=== PATIENT | female | born 1980 | race Caucasian/White ===

== ENCOUNTER 2017-04-06 01:05 | Inpatient (IN) | payer MEDICAID, SELFPAY ==
[2017-04-06 01:19] VITALS: BMI 37.6
[2017-04-06] MEDS: Lactated Ringers 1,000 ML 50 ML IV ×8 (01:45→18:51)
[2017-04-06 02:08] LABS: Hematocrit 32.7 % (37-47); Hemoglobin 10.8 g/dl (12.0-15.0); Mean Corpuscular Hgb 29.8 pg (27.0-32.0); Mean Corpuscular Volume 90.1 fL (81-99); Mean Platelet Vol. 10.5 fl (6.2-12.0); Platelet Count 300 K/mm3 (150-450); RBC Distribution Width CV 16.2 % (11.6-14.6); Red Blood Count 3.63 M/mm3 (4.2-5.4); White Blood Count 11.4 K/mm3 (4.4-11.0)
[2017-04-06 02:09] LABS: Scan Indicated on CBC? Y/N NO
[2017-04-06] MEDS: Ondansetron 4 MG/2 ML Vial IV ×2 (05:01→18:39)
[2017-04-06] MEDS: Oxytocin 30 units/NS 500 ml 30 UNITS/500 ML IV.SOLN IV ×2 (08:56→18:47)
--- NOTE | 2017-04-06 13:29 | PCM.PN.BLA ---
Progress Note LABOR PROGRESS NOTE Comfortable with epidural. AVSS GEN - NAD, OO x 3 SVE 4/70/-2 per RN exam TOCO 4-5/10 min, however unable to detect due to maternal positioning in hands and knees at this time FHR - 150 moderate variability, + accelerations, prolonged deceleration to 80s-90s bpm A/P: 36 yo @ 39 6/7wga with SROM in latent labor, Cat II FHR -Pitocin discontinued, maternal repositioning, O2 supplementation -Prolonged deceleration recovering towards baseline. Will continue to monitor closely. ISE in place. -Plan to place IUPC in order to monitor contractions further.
--- NOTE | 2017-04-06 13:34 | PN_ITS ---
Progress Note LABOR PROGRESS NOTE Comfortable with epidural. AVSS GEN - NAD, OO x 3 SVE 4/70/-2 per RN exam TOCO 4-5/10 min, however unable to detect due to maternal positioning in hands and knees at this time FHR - 150 moderate variability, + accelerations, prolonged deceleration to 80s- 90s bpm A/P: 36 yo @ 39 6/7wga with SROM in latent labor, Cat II FHR -Pitocin discontinued, maternal repositioning, O2 supplementation -Prolonged deceleration recovering towards baseline. Will continue to monitor closely. ISE in place. -Plan to place IUPC in order to monitor contractions further.
[2017-04-06] MEDS: Mag Hydrox/Al Hydrox/Simeth 30 ML UDC PO (16:00)
--- NOTE | 2017-04-06 20:55 | PN.OBGYN_ITS ---
Subjective: Patient presented last evening with spontaneous rupture of membranes at home. Epidural was placed when the patient was approximately 3-4 cm dilation. She slowly progressed to about 8 cm dilation 85% effaced over period of approximately about 14 hours. Pitocin was started about 13 hours ago and has run most of the day with contractions intermittently adequate as noted by an IUPC. Multiple times during the day it was necessary to shut off but then later restart the pitocin because of late decelerations. The baby tolerated labor only in certain positions. After 6 hours of no cervical change, approximately 4 trial pushes were attempted with no descent of the head past -1 station. Given no cervical change release manager the past 6 hours with the cervix dilated 8 cm and maximum contractions on Pitocin tolerable by the baby, we have discussed options and patient desires that we proceed with primary section for failure to progress and failure of descent. The patient and her family have been counseled regarding the risk and indications of this procedure including the possibility of bleeding infection and injury to surrounding structures such as bowel bladder. All questions were answered. - Physical Exam Weight: 206 lb Body Mass Index (BMI) 37.6 Intake and Output for Last 24 Hours 04/04/17 04/05/17 04/06/17 23:59 23:59 23:59 Intake Total 7434 / 7434 Output Total 2175 / 2175 Balance 5259 / 5259 Laboratory Tests Past 24 Hrs 04/06/17 04/06/17 01:45 01:45 WBC 11.4 H RBC 3.63 L Hgb 10.8 L Hct 32.7 L MCV 90.1 MCH 29.8 MCHC 33.0 RDW 16.2 H RDW Differential 51.0 H Plt Count 300 MPV 10.5 Blood Type A POSITIVE Antibody Screen NEGATIVE
[2017-04-06] MEDS: Sodium Citrate/Citric Acid 30 ML UDC PO (21:00)
[2017-04-06] MEDS: Cefazolin 2 GM in 0.9% Normal Saline 100 ML IV ×2 (21:01→21:30)
--- NOTE | 2017-04-06 21:04 | OP.PCM_ITS ---
Operative Report Date of Procedure: 04/06/17 Surgeon: Ty Devine MD, FACOG [employer] Team Member: CULLEN Velasquez Anesthesia: Shiela Han MD Anesthesia: Epidural with Duramorph Pre-op Diagnosis: - -Failure to Progress and Failure to Descend Post-Op Diagnosis: - -Failure to Progress and Failure to Descend Procedure: Primary Low Transverse Cervical Caesarean Section Findings: Viable male with Apgars of 9/9 in occiput anterior presentation with clear amniotic fluid and normal three-vessel placenta. Cord was around leg times 1 tight. Indication: This is a 36-year-old 3 para 2 ab 0 who presented last evening with spontaneous rupture of membranes at home. Epidural was placed when the patient was approximately 3-4 cm dilation. She slowly progressed to about 8 cm dilation 85% effaced over period of approximately about 14 hours. Pitocin was started about 13 hours ago and has run most of the day with contractions intermittently adequate as noted by an IUPC. Multiple times during the day it was necessary to shut off but then later restart the pitocin because of late decelerations. The baby tolerated labor only in certain positions. After 6 hours of no cervical change, approximately 4 trial pushes were attempted with no descent of the head past -1 station. Given no cervical ticket dispenser changer the past 6 hours with the cervix dilated 8 cm and maximum contractions on Pitocin tolerable by the baby, we have discussed options and patient desires that we proceed with primary section for failure to progress and failure of descent. The patient and her family have been counseled regarding the risk and indications of this procedure including the possibility of bleeding infection and injury to surrounding structures such as bowel bladder. All questions were answered. Procedure: Patient was taken to the operating room where after epidural catheter was redosed, the patient was prepped and draped in usual sterile fashion; a Lopez catheter had been previously placed. The abdomen was entered through a Pfannenstiel incision and peritoneum was entered bluntly. After developing a bladder flap on the lower uterine segment a low transverse incision was made on the uterus and head was easily delivered onto the operative field the nose mouth and oropharynx were bulb suctioned. Subsequently a viable male infant was born with Apgars of 9/9. The was noted to cry move all extremities vigorously on the operative field. The umbilical cord was doubly clamped and ligated and infant handed to the nursery personnel who were present for the delivery. Placenta was delivered and noted to be 3 vessels and normal. Uterus was exteriorized remaining placental tissue was removed. The uterus was then closed in 2 layers first with running locked Number 1 Vicryl suture followed by a second imbricating layer with Number 1 Vicryl suture. Number 1 Vicryl suture was then used in a horizontal mattress interrupted fashion to affect final hemostasis of the uterine incision line. Normal fallopian tubes and ovaries were visualized and the uterus was returned to the pelvis. Hemostasis was noted and rectus abdominis muscles were reapproximated in the midline with interrupted Number 1 Vicryl suture in a horizontal mattress fashion. Fascia was closed with running Number 1 loop PDS suture. Subcutaneous tissue was closed with running 3-0 Vicryl suture and skin was closed with 4-0 monocryl suture in a running subcuticular fashion. Steri strips, telfa, and tape were placed across the incision. The patient tolerated the procedure well and was taken to the recovery room in satisfactory condition. Sponge, needle, and instrument counts were all reportedly correct. EBL was 500 cc. Ancef 2 gms IV was given prior to the procedure. Spicemen to Pathology: None Complications: None
--- NOTE | 2017-04-06 21:07 | DCINST_ITS ---
Discharge Diet: No Restrictions Discharge Activity: May not drive while taking narcotic pain medications., May Shower, May Take a Tub Bath May resume sexual activity in: 4-6 weeks Lifting Restrictions: 20 pounds Additional Activity Instructions:: Nothing in the vagina for 4-6 weeks. You may return to work/school in 6 weeks. Call your doctor if your incision/area has: Continuous Slow Oozing, Sudden Increased Bleeding, Increased Pain/ Swelling, Increased Redness, Foul Smelling Discharge Call your doctor if you observe: Fever of 101 or Higher, Inability to urinate, Inability to have a bowel movement, Using more than one pad per hour Additional Instructions: If you experience any of the following, contact your healthcare provider. * Bleeding that soaks a pad every hour for 2 hours * Unrelieved incision or abdominal pain * Swelling, redness, discharge or bleeding from your incision or episiotomy site * Your incision begins to separate * Problems urinating (including inability to urinate or burning while urinating) . * Visual changes * Severe headache * Flu-like symptoms * Pain or redness in one of both of your breasts * Pain, warmth, tenderness or swelling in your legs, especially the calf area * Frequent nausea and vomiting * Symptoms of depression or anxiety If you experience any of the following, call 911 or go to the nearest Emergency Room. * Chest pain * Problems breathing * Seizure activity * Partial or complete paralysis of a body part, slurred speech, weakness or drooping of the face, or a sudden inability to walk or hold your balance Allergies/Adverse Reactions: Allergies metoclopramide [From Reglan] Adverse Reaction (Verified 09/24/16 16:00) Other I JUST GET JUMPY Medications to take at Discharge Ferrous Sulfate 325 mg PO DAILY@0800 03/10/17 Vits [Prenatabs FA] 1 tablet PO DAILY 03/10/17 ProMETHAzine [Phenergan] 12.5 mg PO DAILY 03/10/17 Ranitidine [Zantac] 150 mg PO BID 03/10/17 Sertraline HCl [Zoloft] 50 mg PO DAILY 03/10/17 Docusate Sodium [Colace] 100 mg PO BID PRN PRN #60 cap 04/06/17 Oxycodone [Oxyir] 5 - 10 mg PO Q6H PRN PRN 7 Days #25 tab 04/06/17 The following prescriptions were given: Oxycodone [Oxyir] 5 - 10 mg PO Q6H PRN PRN 7 Days #25 tab PRN Reason: Severe Pain (-12/01) Docusate Sodium [Colace] 100 mg PO BID PRN PRN #60 cap PRN Reason: Constipation Follow-Up: Call to make an appointment with your doctor for an incision check in 1-2 weeks. You will also need a 6 week post- follow up appointment. Please Follow Up With: Val Brar MD - [phone] When: Call to make an appointment for an incision check in 2 weeks. Primary Care Physician: Jerrell Thomas [Primary Care Provider] -
[2017-04-06] MEDS: Oxytocin 30 units/NS 500 ml 30 UNITS/500 ML IV.SOLN 167 UNITS IV (21:30)
[2017-04-06 22:30] VITALS: BP 113/70; BP 129/73; PULSE 74; RESP 15; TEMP 37.8; O2SAT 97
[2017-04-06 22:45] VITALS: BP 113/70; BP 136/77; PULSE 78; RESP 12; TEMP 37.6; O2SAT 95
[2017-04-06 23:00] VITALS: BP 113/70; BP 130/72; PULSE 74; RESP 13; TEMP 37.3; O2SAT 96
[2017-04-06 23:15] VITALS: BP 113/70; BP 122/68; PULSE 79; RESP 16; O2SAT 94
[2017-04-06 23:30] VITALS: BP 113/70; BP 119/61; PULSE 78; RESP 18; O2SAT 95
[2017-04-06 23:45] VITALS: BP 113/70; BP 123/66; PULSE 80; RESP 18; TEMP 37.3; O2SAT 96
[2017-04-07] VITALS (18 sets, daily range): BP systolic 92–124; BP diastolic 55–74; PULSE 80–109; RESP 16–18; TEMP 36.7–37.5; O2SAT 92–99
--- NOTE | 2017-04-07 01:43 | NURSING ---
30 cc blood clot noted, pad changed at this time
[2017-04-07] MEDS: Ketorolac 30 MG/ML Syringe IV ×4 (03:39→21:07)
[2017-04-07] MEDS: Cefazolin 1 GM/50 ML BAG IV ×2 (04:51→13:17)
[2017-04-07 05:06] LABS: Hemoglobin 9.4 g/dl (12.0-15.0); Mean Corp Hgb Conc 32.4 g/gl (32-36); Mean Corpuscular Hgb 29.7 pg (27.0-32.0); Mean Corpuscular Volume 91.5 fL (81-99); Mean Platelet Vol. 9.8 fl (6.2-12.0); Platelet Count 252 K/mm3 (150-450); RBC Distribution Width CV 16.2 % (11.6-14.6); RBC Distribution Width SD 51.6 fl (35.1-43.9); Red Blood Count 3.17 M/mm3 (4.2-5.4); White Blood Count 14.5 K/mm3 (4.4-11.0)
[2017-04-07 05:20] LABS: Scan Indicated on CBC? Y/N NO
--- NOTE | 2017-04-07 08:54 | PN.OBGYN_ITS ---
Subjective: Patient without complaints. Tolerating diet well. Positive flatus. Breast- feeding going well. - Physical Exam Vital Signs AF, VSS Temp Pulse Resp BP Pulse Ox 98.3 F 80 18 94/61 95 04/07/17 07:36 04/07/17 07:36 04/07/17 07:36 04/07/17 07:36 04/07/17 07:36 Oxygen Delivery Method Room Air Weight: 206 lb Body Mass Index (BMI) 37.6 Intake and Output for Last 24 Hours 04/05/17 04/06/17 04/07/17 23:59 23:59 23:59 Intake Total 7434 / 7434 1268 / 1268 Output Total 2675 / 2675 325 / 325 Balance 4759 / 4759 943 / 943 Laboratory Tests Past 24 Hrs 04/07/17 05:00 WBC 14.5 H RBC 3.17 L Hgb 9.4 L Hct 29.0 L MCV 91.5 MCH 29.7 MCHC 32.4 RDW 16.2 H RDW Differential 51.6 H Plt Count 252 MPV 9.8 Wound is clean, dry, intact. Good urine output. Hemoglobin okay. Assessment/Plan Well. Continuing present care.
[2017-04-07] MEDS: Lactated Ringers 1,000 ML 100 ML IV (09:45)
[2017-04-07] MEDS: 0.9% Saline Lock 10 ML Syringe IV ×2 (15:12→21:14)
--- NOTE | 2017-04-07 17:21 | NURSING ---
1430 pt up to bathroom to wash up, holder emptied for 500 cc urine, iv to saline kristy at 1500, tolerated sitting in chair without difficulty, pads changed for small amt of carlos campbell
[2017-04-07] MEDS: Acetaminophen 500 MG Tablet 1000 MG PO (19:45)
[2017-04-07] MEDS: Senna/Docusate Sodium 1 Tablet PO (19:45)
[2017-04-07] MEDS: Sertraline 50 MG Tablet PO (21:27)
[2017-04-08 02:22] VITALS: BP 105/66; PULSE 82; RESP 18; TEMP 36.8; O2SAT 96
[2017-04-08] MEDS: 0.9% Saline Lock 10 ML Syringe IV ×3 (02:39→14:28)
[2017-04-08] MEDS: Ketorolac 30 MG/ML Syringe IV ×3 (02:40→14:27)
--- NOTE | 2017-04-08 07:30 | PCM.PN.OB ---
Subjective: Pain reasonably controlled. Voiding. Tolerating PO. Bleeding light. Bottle feeding. Objective: Afeb VSS - Physical Exam General: Alert, Oriented x3, Cooperative, No apparent distress Lungs: Clear to auscultation, Normal air movement Cardiovascular: Regular rate, Regular Rhythm Abdomen: Soft, Non Tender, Non-Distended, - - Incision intact, dry, no erythema Extremities: No edema Skin: No rashes Neurological: Neuro grossly intact Psych/Mental Status: Normal Affect Comment: Lochia light Vital Signs Temp Pulse Resp BP Pulse Ox 98.2 F 82 18 105/66 96 04/08/17 02:22 04/08/17 02:22 04/08/17 02:22 04/08/17 02:22 04/08/17 02:22 Oxygen Delivery Method Room Air Weight: 206 lb Body Mass Index (BMI) 37.6 Intake and Output for Last 24 Hours //18 //18 04/08/17 23:59 23:59 23:59 Intake Total 7434 / 7434 2968 / 2968 Output Total 2675 / 2675 1675 / 1675 300 / 300 Balance 4759 / 4759 1293 / 1293 -300 / -300 Assessment/Plan Doing well on POD#2. Considering discharge today. Home going instructions and warnings given.
[2017-04-08 08:15] VITALS: BP 127/76; PULSE 76; RESP 18; TEMP 37.3; O2SAT 97
[2017-04-08 14:30] VITALS: BP 127/72; PULSE 82; RESP 16; TEMP 37; O2SAT 98
--- NOTE | 2017-04-08 15:30 | NURSING ---
baby bands verified by nurse and mother. mother signed baby discharge form
== END 2017-04-08 15:45 | disposition home or self-care (01) | DRG 370 ==
PROVIDERS: Admitting Provider Obstetrics & Gynecology; Family Provider Physician Assistant; PCP Physician Assistant; Visit Provider Obstetrics & Gynecology
DX: O32.4XX0 Maternal care for high head at term, not applicable or unspecified (principal); O99.02 Anemia complicating childbirth; D64.9 Anemia, unspecified; O76 Abnormality in fetal heart rate and rhythm complicating labor and delivery; O42.02 Full-term premature rupture of membranes, onset of labor within 24 hours of rupture; O99.344 Other mental disorders complicating childbirth; F32.9 Major depressive disorder, single episode, unspecified; F41.9 Anxiety disorder, unspecified; O99.353 Diseases of the nervous system complicating pregnancy, third trimester; M79.7 Fibromyalgia; Z37.0 Single live birth; Z3A.39 39 weeks gestation of pregnancy
CPT/HCPCS: 59025; 59050; 85027; 86850; 86900; 99218; J7120; A4216; G0378; J2405

== ENCOUNTER → 2017-05-24 13:59 | Outpatient (CLI) | payer MEDICAID, SELFPAY | PROVIDERS: Visit Provider Obstetrics & Gynecology | DX: N39.0 Urinary tract infection, site not specified (principal) | CPT/HCPCS: 87077; 87086; 87088; 87186 ==

== ENCOUNTER → 2022-07-02 | Outpatient (CLI) | payer OTHER, MEDICAID, SELFPAY ==
[2022-07-10 11:09] LABS: HPV APTIMA, High Risk Negative (Negative)
== END | disposition home or self-care (01) ==
LOC: LABSPEC 16:58
PROVIDERS: PCP Physician Assistant; Visit Provider Nurse Practitioner Women's Health
DX: Z01.419 Encounter for gynecological examination (general) (routine) without abnormal findings (principal)
CPT/HCPCS: 87624; 88175; G0145

== ENCOUNTER → 2022-09-09 | Outpatient (CLI) | payer OTHER, MEDICAID, SELFPAY ==
--- NOTE | 2022-09-09 07:20 | US_ITS ---
INDICATION: menorrhagia EXAMINATION: Ultrasound US Pelvis Non OB Complete With Transvaginal Imaging TECHNIQUE: Transabdominal and transvaginal pelvic ultrasound was performed. Grayscale, spectral waveform, and color flow Doppler evaluation of the adnexa. COMPARISON: CT abdomen and pelvis August 15, 2013 FINDINGS: UTERUS: Retroverted to retroflexed The uterus measures 9.9 x 7.1 x 5.0 cm. There is no uterine mass. The endometrial stripe measures 14 in AP diameter. Small nabothian cysts are incidentally noted in the cervix. RIGHT OVARY: 3.22 x 2.06 x 2.18 cm. Non-enlarged, normal echogenicity. There is normal arterial inflow and venous outflow present in the right ovary. LEFT OVARY: 3.9 x 1.85 x 2.55 cm. Non-enlarged, normal echogenicity. There is normal arterial inflow and venous outflow present in the left ovary. FREE FLUID: None. URINARY BLADDER: At the time of scanning, the bladder was 12.36 x 7.22 x 10.33 cm, corresponding to a volume of 483 mL. US/Pelvic (Non ) IMPRESSION: 1. Retroverted to retroflexed, normal size uterus. There is mild endometrial thickening, which may be physiologic (LMP August 11, 2022). 2. Unremarkable ovaries. Electronically Signed: Miguel Angel Orourke MD at 9:54 EDT Reading Location ID and State: [id number] / Unknown , Service support ,
--- NOTE | 2022-09-09 07:20 | BI_ITS ---
MAMMOGRAPHY - BILATERAL SCREENING 3-D TOMOSYNTHESIS REASON FOR EXAM: Female, 41 years old. Routine screening PERTINENT HISTORY: No significant family history. TECHNIQUE: 2-D mammograms and 3-D Tomosynthesis of the breast (s) were performed. CAD was performed. COMPARISON: None. Baseline examination. FINDINGS: The breast composition is heterogeneously dense that can obscure small breast masses. Scattered benign calcifications are seen. No dense spiculated masses or suspicious microcalcifications are identified. No architectural distortion is identified. There is no skin thickening or retraction. BI/SCRN MAMM (CAD)W/NOEMY BILAT IMPRESSION: No mammographic signs of malignancy. Routine yearly mammograms recommended. ASSESSMENT CATEGORY: BIRADS Category 2: Benign. A letter regarding these results will be sent to the patient by the facility within 30 days. FOLLOW UP RECOMMENDATION: Yearly follow up mammogram recommended. (A) Approximately 10% of breast cancers are not detected by mammography. A normal mammogram should not delay biopsy of a clinically suspicious abnormality. Electronically Signed: Miguel Angel Flaherty MD at 8:45 EDT ,
== END | disposition home or self-care (01) ==
LOC: OPUS 07:19
PROVIDERS: PCP Physician Assistant; Referring Provider Nurse Practitioner Women's Health; Visit Provider Nurse Practitioner Women's Health
DX: Z12.31 Encounter for screening mammogram for malignant neoplasm of breast (principal); N92.0 Excessive and frequent menstruation with regular cycle
CPT/HCPCS: 76830; 76856; 77063; 77067

== ENCOUNTER 2024-06-12 17:56 | Emergency (ER) | payer BC, SELFPAY ==
[2024-06-12 17:57] VITALS: BP 152/94; PULSE 69; RESP 18; TEMP 36.6; O2SAT 98; BMI 32.7
[2024-06-12] MEDS: Ketorolac 15 MG/ML Vial IV (18:28)
[2024-06-12] MEDS: 0.9% Normal Saline (1000mL) 1,000 ML 999 ML IV (18:28)
--- NOTE | 2024-06-12 18:29 | EDS_ITS ---
HPI <CHELSEA Kirby - Last Filed: 06/12/24 20:48> History of Present Illness Chief Complaint: Abn Labs Narrative Narrative: Patient presenting today after being told to come down by her PCP. Over the past 8 days she has had generalized bodyaches as well as intermittent headaches and pain to her neck. She saw urgent care on , she had basic labs and a CPK obtained that were unremarkable. She was discharged home on prednisone which she has taken now for 4 days. She saw her PCP today in the office, they repeated labs and called her this evening to say that her WBC was 16,000 and that she needed to come in to the ER to be evaluated. She had a COVID/influenza/RSV swab that was negative. She denies fevers, chills, flulike symptoms, abdominal pain, nausea, vomiting, urinary symptoms, and diarrhea. She has a PMH of fibromyalgia and arthritis. PFSH <CHELSEA Kirby - Last Filed: 06/12/24 20:48> PFS Medical History Anemia Anxiety and depression Home Medications ?Medication ?Instructions ?Recorded ?Last Taken ?Type ferrous sulfate 325 mg (65 mg 325 mg PO DAILY@0800 low hbg 03/10/17 1 Day Ago History iron) tablet ~04/05/17 desvenlafaxine succinate 25 mg 25 mg PO DAILY 07/02/22 Unknown History tablet,extended release 24 hr (Pristiq) multivitamin 1 tab PO DAILY 07/02/22 Unkn own History Allergy/AdvReac Type Severity Reaction Status Date / Time metoclopramide (From Reglan) AdvReac Other Verified 06/12/24 17:56 Family History Father Cancer lymphoma Heart disease CVA (cerebral vascular accident) Grandmother CVA (cerebral vascular accident) Grandfather Huntingtons chorea Surgical History S/P wisdom tooth extraction S/P Social History household members: significant other and children housing: house number of children: 3 current occupational status: employed 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 Smoking Status: Never smoker alcohol intake: current alcohol intake frequency: holidays/special occasions only substance use type: does not use seatbelt use: always do you feel safe at home: Yes additional social history: [employer]- [employer] 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 ROS <CHELSEA Kirby - Last Filed: 06/12/24 20:48> ROS ED Constitutional Constitutional ED: Denies chills or fever(s) ENT ENT ED: Denies sore throat Cardiovascular Cardiovascular: Denies chest pain Respiratory/Chest Respiratory/Chest: Denies cough or dyspnea Gastrointestinal Gastrointestinal: Denies abdominal pain, nausea or vomiting Genitourinary Genitourinary ED: Denies dysuria, hematuria or urinary urgency Musculoskeletal Musculoskeletal: Reports arthralgias, myalgias and neck pain Integumentary Denies rash Neurologic Neurologic: Reports headache(s); Denies paresthesias or weakness EXAM <CHELSEA Kirby - Last Filed: 06/12/24 20:48> Physical Exam Const Vital Signs: 06/12/24 17:57 06/12/24 20:11 Temperature 97.8 F 98.2 F Temperature Source Oral Pulse Rate 69 52 L Respiratory Rate 18 18 Blood Pressure 152/94 H 130/80 H Blood Pressure Mean 113 96 Pulse Ox 98 98 Oxygen Delivery Method Room Air Positive well nourished, well developed and no apparent distress General Appearance ED: well developed HEENT Reports normocephalic, head/scalp atraumatic and TM's clear HEENT Narrative: Posterior pharynx clear, uvula midline Tympanic Membrane ED: Yes TM's clear bilateral Mouth ED: Yes moist mucous membranes normal Eyes PERRL and EOMs intact bilaterally Neck supple Neck Narrative: No meningeal signs, negative Kernig's and Brudzinski sign, full range of motion to the neck. Pain to the bilateral trapezius muscles Chest Wall inspection of chest normal Resp normal respiratory effort and clear to auscultation bilaterally Cardio regular rate and regular rhythm GI soft to palpation, non-tender, non-distended and no masses Back/Spine normal ROM and normal to inspection Extremity normal to inspection and full ROM Neuro oriented x3, CN's II-XII intact bilaterally, moves all extremities, no focal motor deficits and no sensory deficits noted Sensorium / Orientation: awake and alert Psych mental status grossly normal and thought process normal Skin no rashes or lesions noted and no wounds <Dr. Michele Telles DO - Last Filed: 06/12/24 20:05> Physical Exam Const Vital Signs: 06/12/24 17:57 06/12/24 20:11 Temperature 97.8 F 98.2 F Temperature Source Oral Pulse Rate 69 52 L Respiratory Rate 18 18 Blood Pressure 152/94 H 130/80 H Blood Pressure Mean 113 96 Pulse Ox 98 98 Oxygen Delivery Method Room Air MDM <CHELSEA Kirby - Last Filed: 06/12/24 20:48> MDM MDM Narrative Medical decision making narrative: Patient presenting today after being sent in by her PCP due to leukocytosis. She has had generalized bodyaches, neck/upper back pain, and headaches over the past 8 days. She has tenderness to her bilateral trapezius muscles, no meningeal signs on exam. She has a negative Kernig's and Brudzinski sign. She is nontoxic-appearing with unremarkable vital signs. I did review her workup from her PCPs office, she had a X-ray of the cervical and thoracic spine negative for acute findings, CBC, CMP, and CPK from were unremarkable. She was started on prednisone which could explain her leukocytosis today. Labs were repeated here, her CBC shows a mildly elevated WBC at 11.4, her BMP is unremarkable. She did get a result back while she was here, her Yaron-Reyna virus came back positive from her PCPs office. Suspect that that is the cause of her symptoms and WBC elevation. Supportive care measures discussed, she was given IV fluids and Toradol here for pain. Recommended she follow-up with her PCP and she will be discharged Lab Data Attestation: I reviewed the patient's lab results. Labs: Laboratory Results - last 24 hr 06/12/24 16:28 WBC 11.4 H RBC 4.08 L Hgb 12.6 Hct 37.1 MCV 90.9 MCH 30.9 MCHC 34.0 RDW Std Deviation 39.0 RDW Coeff of Kaitlin 11.8 Plt Count 297 MPV 10.2 Immature Gran % (Auto) 0.500 Neut % (Auto) 80.0 H Lymph % (Auto) 15.3 L Rooks % (Auto) 3.9 Eos % (Auto) 0.1 Baso % (Auto) 0.2 Absolute Neuts (auto) 9.1 H Absolute Lymphs (auto) 1.74 Nucleated RBC % 0 Sodium 137 Potassium 4.1 Chloride 104 Carbon Dioxide 20.0 L Anion Gap 13 BUN 15 Creatinine 0.81 Estim Creat Clear Calc 87.50 Est GFR (MDRD) Non-Af 92 BUN/Creatinine Ratio 19.0 Glucose 137 H Lactic Acid < 1.0 Calcium 9.4 <Dr. Michele Telles, DO - Last Filed: 06/12/24 20:05> MDM Lab Data Labs: Laboratory Results - last 24 hr 06/12/24 16:28 WBC 11.4 H RBC 4.08 L Hgb 12.6 Hct 37.1 MCV 90.9 MCH 30.9 MCHC 34.0 RDW Std Deviation 39.0 RDW Coeff of Kaitlin 11.8 Plt Count 297 MPV 10.2 Immature Gran % (Auto) 0.500 Neut % (Auto) 80.0 H Lymph % (Auto) 15.3 L Rooks % (Auto) 3.9 Eos % (Auto) 0.1 Baso % (Auto) 0.2 Absolute Neuts (auto) 9.1 H Absolute Lymphs (auto) 1.74 Nucleated RBC % 0 Sodium 137 Potassium 4.1 Chloride 104 Carbon Dioxide 20.0 L Anion Gap 13 BUN 15 Creatinine 0.81 Estim Creat Clear Calc 87.50 Est GFR (MDRD) Non-Af 92 BUN/Creatinine Ratio 19.0 Glucose 137 H Lactic Acid < 1.0 Calcium 9.4 Treatment and Re-Evaluation :: ED attending note: I evaluated the patient in conjunction with the [facility]. I agree with his/her statements and above findings. I have personally performed a face to face assessment of the patient and have reviewed the [facility] Note. I performed a substantive portion of the visit including all aspects of the following. I personally saw the patient performed chart review, physical exam, reviewed labs, imaging (if obtained), and formulated a treatment and management plan. History as above Exam: No meningeal signs, neck is supple, no focal deficits, lungs are clear, abdomen soft nontender. No focus of infection or rash. MDM/plan Will obtain basic labs rule out signs of significant leukocytosis, lactate elevation, anion gap elevation. Labs reviewed and were unremarkable. Of note on my evaluation patient noted that outpatient testing shows she is EBV positive. She is concerned for mononucleosis. Will give further outpatient instructions and splenomegaly precautions. This note was generated with [employer] dictation software. It may contain incorrect words, spelling, and punctuation that were not noted in review of the chart prior to signing. Discharge Plan Triage Chief Complaint: Abn Labs ED Midlevel Provider: Chelita Vergara ED Provider: Michele Telles Dx/Rx/DC Orders Clinical Impression: EBV infection Instructions: ED Mononucleosis Prescriptions: No Action desvenlafaxine succinate [Pristiq] 25 mg tablet extended release 24 hr 25 mg PO DAILY multivitamin Tablet 1 tab PO DAILY ferrous sulfate 325 MG tablet 325 mg PO DAILY@0800 Primary Care Provider: Breanna Lopez Referrals: Nola Rebollar PA [Non-Staff] - Activity Restrictions/Additional Instructions: Follow-up with your PCP next 5 to 7 days, return for any worsening symptoms. Print Language: Bulgarian Disposition Disposition: Home, Self Care Discharge Date/Time: 06/12/24 20:12
[2024-06-12 19:07] LABS: Absolute Lymphocyte Count 1.74 X10^3/uL (0.83-4.51); Absolute Neutrophil Count 9.1 X10^3/uL (2.0-7.7); Basophil# 0.02 X10^3/uL; Basophil% 0.2 % (0-1); Eosinophil# 0.01 X10^3/uL; Eosinophils% 0.1 % (0-5); Hematocrit 37.1 % (37-47); Hemoglobin 12.6 g/dL (12.0-15.0); Lymphocyte # 1.74 X10^3/ul (0.83-4.51); Lymphocyte % 15.3 % (19-41); Mean Corpuscular Hgb 30.9 pg (27.0-32.0); Mean Corpuscular Volume 90.9 fL (81-99); Mean Platelet Vol. 10.2 fl (6.2-12.0); Monocyte# 0.44 X10^3/uL; Monocyte% 3.9 % (0-10); NRBC Flagged by Analyzer 0 % (0-5); Neutrophil # 9.11 X10^3/uL (2.7-7.7); Platelet Count 297 K/mm3 (150-450); RBC Distribution Width CV 11.8 % (11.6-14.6); Red Blood Count 4.08 M/mm3 (4.2-5.4); White Blood Count 11.4 K/mm3 (4.4-11.0)
[2024-06-12 19:34] LABS: Anion Gap 13 (5-15); BUN 15 mg/dL (4-19); Calcium,Total 9.4 mg/dL (7.6-11.0); Chloride 104 mmol/L (98-108); Creatinine, Serum 0.81 mg/dL (0.70-1.20); EST Glomerular Filtration Rate 92 (>60); Glucose 137 mg/dL (70-99); Potassium 4.1 mmol/L (3.3-5.1); Sodium Level 137 mmol/L (133-145)
[2024-06-12 19:36] LABS: Lactic Acid < 1.0 mmol/L (0.0-2.0)
[2024-06-12 20:11] VITALS: BP 130/80; PULSE 52; RESP 18; TEMP 36.8; O2SAT 98
== END 2024-06-12 20:12 | disposition home or self-care (01) ==
PROVIDERS: Physician Assistant; Emergency Provider Emergency Medicine; PCP Clinical Nurse Specialist Adult Health; Visit Provider Emergency Medicine
DX: D72.829 Elevated white blood cell count, unspecified (principal); B27.00 Gammaherpesviral mononucleosis without complication; F41.8 Other specified anxiety disorders; Z79.899 Other long term (current) drug therapy; D64.9 Anemia, unspecified
CPT/HCPCS: 80048; 83605; 85025; 96361; 96374; 99283; A4216